=== PATIENT | female | born 1960 | race Caucasian/White ===

== ENCOUNTER 2022-03-10 15:48 | Emergency (ER) | payer MEDICAID, SELFPAY ==
[2022-03-10 16:00] VITALS: BP 113/77; PULSE 69; RESP 20; TEMP 36; O2SAT 96; BMI 31.3
[2022-03-10 16:15] LABS: Appearance Urine Cloudy (Clear); Bilirubin Urine Negative (Negative); Blood Urine 3+ (Negative); Color Urine Yellow (Yellow); Glucose Urine Negative (Negative); Ketones Urine Trace (Negative); Leukocyte Esterase Urine 1+ (Negative); Nitrite Urine Positive (Negative); Protein Urine 2+ (Negative); Specific Gravity Urine >= 1.030 (1.000-1.030); Urobilinogen Urine 0.2 (0.2-1.0)
[2022-03-10 16:28] LABS: RBC Urine 25-50 (0-2)
[2022-03-10 16:29] LABS: Bacteria Urine Moderate; Squamous Epithelial Cell Urine Few (None-Few)
--- NOTE | 2022-03-10 16:34 | ED.FEMALEGU ---
HPI - Female Genitourinary General Chief complaint: Urogenital Problems, Female Stated complaint: Possible bladder infection Time Seen by Provider: 03/10/22 15:57 History of Present Illness HPI Narrative: This 61-year-old female comes in with dysuria symptoms that began 4 days ago. She states that she has some abdominal pain that is mild. She has increased frequency and urgency. She has a sense of incomplete voiding. She attempted to get into urgent care but it was not open. She states that she did have a urinary tract infection a couple years ago but otherwise is in good health. Related Data Previous Rx's Medication Instructions Recorded cephalexin 500 mg capsule 500 mg PO TID 7 days #21 caps 03/10/22 Allergies Allergy/AdvReac Type Severity Reaction Status Date / Time Sulfa (Sulfonamide Allergy Verified 03/10/22 15:59 Antibiotics) Review of Systems Status of ROS: Reports: 10 or more systems reviewed and unremarkable except as noted in History and below Narrative: Constitutional: No fevers, no weight gain or loss. Eyes: No discharge. No vision changes. HENT: No congestion, no sore throat, no ear pain. Cardiovascular: No chest pain, no palpitations. Respiratory: No shortness of breath, no wheezes, no cough. Gastrointestinal: No abdominal pain, no vomiting, no diarrhea. Genitourinary: Dysuria symptoms as described above. Musculoskeletal: Normal range of motion. Skin: No rashes, no pruritis. Neurological: No dizziness, weakness, sensory change, speech change. Endo/Heme/Allergies: No bruising or bleeding. No polydipsia. Pysch: no suicidality, no anxiety, no insomnia. All other systems reviewed and are negative. [facility] Social History Smoking Status: Never smoker Do you use any of these nicotine containing products: None Second hand tobacco smoke exposure: No How often do you have a drink containing alcohol: monthly or less How many standard drinks containing alcohol do you have on a typical day: 1 or 2 How often do you have six or more drinks on one occasion: Never AUDIT-C Alcohol total score: 1 Non-prescribed substance use: denies use service: No Exam Narrative: Exam Narrative: Constitutional: Well-developed, well-nourished, no acute distress. HEENT: Normocephalic, atraumatic. Neck: Normal range of motion. Nontender. Supple. Heart: Intact distal pulses. Lungs: No chest discomfort. No wheezes, rhonchi, or rales. Abdomen: Mild tenderness in the lower abdomen. Back: Normal range of motion. Extremities: Normal range of motion. No injury. Skin: Intact. No rash. Warm. No erythema or pallor. Neurologic: No altered sensation. No weakness. Alert and oriented. Psychiatric: No suicidality. No anxiety or depression. No insomnia. Nursing notes and vitals signs are reviewed. Const: Vital Signs, click to edit/add: Vital Signs - 24 hr 03/10/22 16:00 Temperature 96.8 F L Pulse Rate [Pulse Oximeter] 69 Respiratory Rate 20 Blood Pressure [Ri ght Upper Arm] 113/77 Pulse Oximetry 96 Oxygen Delivery Me thod Room Air Course Vital Signs Vital signs: Initial Vital Signs Temperature 96.8 F L 03/10/22 16:00 Temperature Source Temporal Artery Scan 03/10/22 16:00 Pulse Rate 69 03/10/22 16:00 Pulse Rhythm 03/10/22 16:00 Respiratory Rate 20 03/10/22 16:00 Blood Pressure 113/77 03/10/22 16:00 Blood Pressure Mean 89 03/10/22 16:00 Blood Pressure Position Sitting 03/10/22 16:00 Pulse Oximetry 96 03/10/22 16:00 Oxygen Delivery Method 03/10/22 16:00 Vital Signs Temperature 96.8 F L 03/10/22 16:00 Pulse Rate 69 03/10/22 16:00 Respiratory Rate 20 03/10/22 16:00 Blood Pressure 113/77 03/10/22 16:00 Pulse Oximetry 96 03/10/22 16:00 Oxygen Delivery Method 03/10/22 16:00 Temperature 96.8 F L 03/10/22 16:00 Pulse Rate 69 03/10/22 16:00 Respiratory Rate 20 03/10/22 16:00 Blood Pressure 113/77 03/10/22 16:00 Pulse Oximetry 96 03/10/22 16:00 Oxygen Delivery Method 03/10/22 16:00 MDM - Female Genitourinary MDM Narrative Medical decision making narrative: This patient has dysuria symptoms suspicious of a urinary tract infection. Urinalysis today confirms this to be true. She did receive a prescription for Keflex. Lab Data Labs: Lab Results 12/23/22 Range/Units 16:05 Urine Color Yellow (Yellow) Urine Appearance Cloudy A (Clear) Urine pH 5.0 (5.0-8.5) Ur Specific [place] >= 1.030 (1.000-1.030) Urine Protein 2+ A (Negative) Urine Glucose (UA) Negative (Negative) Urine Ketones Trace A (Negative) Urine Blood 3+ A (Negative) Urine Nitrite Positive A (Negative) Urine Bilirubin Negative (Negative) Urine Urobilinogen 0.2 (0.2-1.0) Ur Leukocyte Esterase 1+ A (Negative) Urine RBC 25-50 A (0-2) Urine WBC 10-25 A (0-5) Ur Squamous Epith Cells Few (None-Few) Urine Bacteria Moderate A (None) Discharge Plan Discharge Clinical Impression: Urinary tract infection Patient Disposition: Home, Self-Care Condition: Stable Additional Instructions: Take medication as prescribed. Follow up with MD or return if worsening symptoms happen. Prescriptions: New cephalexin 500 mg capsule 500 mg PO TID 7 Days Qty: 21 0RF Follow Up/Referrals: Provider,Not a Local [Primary Care Provider] - Stand Alone Forms: [facility]th Info Instructions
== END 2022-03-10 16:58 | disposition home or self-care (01) ==
LOC: ED 16:37
PROVIDERS: Family Medicine; Emergency Provider Emergency Medicine Emergency Medical Services
DX: N39.0 Urinary tract infection, site not specified (principal)
CPT/HCPCS: 81001; 87086; 87186; 99283; 99284

== ENCOUNTER 2023-12-05 17:35 | Outpatient (CLI) | payer MEDICAID, SELFPAY | END 2023-12-05 17:36 | disposition home or self-care (01) | LOC: NFLDREF 12-06 10:49 | PROVIDERS: Visit Provider Nurse Practitioner | DX: N30.01 Acute cystitis with hematuria (principal); B96.20 Unspecified Escherichia coli [E. coli] as the cause of diseases classified elsewhere | CPT/HCPCS: 87086; 87186 ==

== ENCOUNTER 2023-12-05 21:56 | Emergency (ER) | payer MEDICAID, SELFPAY ==
[2023-12-05 22:05] VITALS: BP 122/81; PULSE 95; RESP 16; TEMP 36.3; O2SAT 95; BMI 31.3
--- NOTE | 2023-12-05 23:16 | ED.FEMALEGU ---
HPI - Female Genitourinary General Time Seen by Provider: 23:16 Date Seen: 12/05/23 Chief complaint: Urogenital Problems, Female Stated complaint: UTI Time Seen by Provider: 12/05/23 23:10 Source: patient, family, RN notes reviewed and old records reviewed Mode of arrival: ambulatory Limitations: no limitations History of Present Illness HPI Narrative: This is a very pleasant 63-year-old female with past history of UTI who comes to the emergency room requesting antibiotics. Patient was seen earlier today in urgent care, diagnosed with a UTI and a prescription for Macrobid was sent to the pharmacy which was closed. She and her both have symptoms. Her symptoms actually started 2 days ago when she began experiencing a mild burning with urination. These symptoms persisted and she was seen in the urgent care. Unfortunately they could not fill the prescription and when she began to few more achy and noticed more blood in her urine they elected to come to the emergency room. Both here and in the clinic patient and her adamantly deny a concern regarding UTI. They have not been swimming, did participated in recent travel or prolonged inability to urinate. Scarlet denies any fevers or chills. She does note a UTI 2 years ago which she states was not the normal E coli. 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 They were not sensitive to Macrobid. Scarlet has no vomiting fever chills. She is not currently on a blood thinner. Related Data Home Medications ?Medication ?Instructions ?Recorded ?Confirmed fluoxetine 10 mg capsule 10 mg PO DAILY 12/05/23 12/05/23 fluoxetine 20 mg capsule 20 mg PO DAILY 12/05/23 12/05/23 levothyroxine 88 mcg tablet 88 mcg PO DAILY 12/05/23 12/05/23 omeprazole 20 mg capsule,delayed 20 mg PO DAILY 12/05/23 12/05/23 release Previous Rx's ?Medication ?Instructions ?Recorded cephalexin 500 mg capsule 500 mg PO TID #15 caps 12/05/23 nitrofurantoin 100 mg PO BID 5 days #10 caps 12/05/23 monohydrate/macrocrystals 100 mg capsule Allergies Allergy/AdvReac Type Severity Reaction Status Date / Time Sulfa (Sulfonamide Allergy Verified 12/05/23 17:07 Antibiotics) Review of Systems Status of ROS: Reports: 6 or more systems reviewed and unremarkable except as noted in History and below [facility] Social History Smoking Status: Never smoker Do you use any of these nicotine containing products: None Second hand tobacco smoke exposure: No How often do you have a drink containing alcohol: monthly or less How many standard drinks containing alcohol do you have on a typical day: 1 or 2 How often do you have six or more drinks on one occasion: Never AUDIT-C Alcohol total score: 1 Non-prescribed substance use: denies use service: No Exam Narrative: Exam Narrative: Alert and oriented. No acute distress. External ears eyes nose clear. Heart with regular rate and rhythm and lungs are clear to auscultation. No CVA tenderness to percussion. No abdominal pain with palpation. Const: Vital Signs, click to edit/add: Vital Signs - 24 hr 12/05/23 22:05 Temperature 97.4 F L Pulse Rate [Left P ulse Oximeter] 95 Respiratory Rate 16 Blood Pressure [Ri ght Upper Arm] 122/81 Pulse Oximetry 95 Oxygen Delivery Me thod Room Air Documenting provider has reviewed patient's vital signs: yes Course Course ED Course: I do confirm with lab that urine culture is ordered. Macrobid had previously been prescribed but I do think it would be on villegas to use this medication as she has had Macrobid resistant infection in 2021. Instead will give her 1 dose of Keflex 500 mg p.o. and 1 dose of Pyridium for discomfort. She is in agreement with this plan. She is aware that it will stay in her underwear and cause her urine to be bright yellow. No fever chills vomiting at this time to suggest worsening infection. Vital Signs Vital signs: Initial Vital Signs Temperature 97.4 F L 12/05/23 22:05 Temperature Source Temporal Artery Scan 12/05/23 22:05 Pulse Rate 95 12/05/23 22:05 Pulse Rhythm Regular 12/05/23 22:05 Respiratory Rate 16 12/05/23 22:05 Blood Pressure 122/81 12/05/23 22:05 Blood Pressure Mean 94 12/05/23 22:05 Blood Pressure Position Sitting 12/05/23 22:05 Pulse Oximetry 95 12/05/23 22:05 Oxygen Delivery Method Room Air 12/05/23 22:05 Vital Signs Temperature 97.4 F L 12/05/23 22:05 Pulse Rate 95 12/05/23 22:05 Respiratory Rate 16 12/05/23 22:05 Blood Pressure 122/81 12/05/23 22:05 Pulse Oximetry 95 12/05/23 22:05 Oxygen Delivery Method Room Air 12/05/23 22:05 Temperature 97.4 F L 12/05/23 22:05 Pulse Rate 95 12/05/23 22:05 Respiratory Rate 16 12/05/23 22:05 Blood Pressure 122/81 12/05/23 22:05 Pulse Oximetry 95 12/05/23 22:05 Oxygen Delivery Method Room Air 12/05/23 22:05 MDM - Female Genitourinary MDM Narrative Medical decision making narrative: 1. UTI-review of the urinalysis from earlier today shows positive nitrites and leukocyte esterase as well as tendon fat 25 wbc's and rbc's. No concern for STI per this couple. Have switched patient's Macrobid to Keflex with 1st dose given tonight and subsequent doses sent to the pharmacy. Keflex 500 mg p.o. t.i.d. x5 days. Recommend pushing fluids. Seek medical attention for vomiting, fever, worsening symptoms. I do not have an explanation for both Scarlet and her getting UTIs is exactly the same time. 2. Disposition-home. Return for worsening symptoms and as needed. Did confirm that urine culture is pending. Medical Records Attestation: I reviewed the patient's medical records. Lab Data Attestation: I reviewed the patient's lab results. Lab results narrative: Urinalysis reviewed. Previous urine culture reviewed. Discharge Plan Discharge Clinical Impression: Urinary tract infection Patient Disposition: Home, Self-Care Condition: Unchanged Additional Instructions: Increase fluids. You will notice that the Pyridium given in the ED tonight for discomfort will change your urine to a very bright color and may stain your underwear. However, it should help with symptoms until the antibiotic has an opportunity to kick in and start working. I did switch her antibiotic from Macrobid to Keflex in light of the fact that you had a previous urine culture that showed resistance to Macrobid. I have confirmed that there is a urine culture pending on the sample you left in the clinic earlier today. Return to the emergency room her seek medical attention for fever, worsening symptoms and as needed. Prescriptions: New cephalexin 500 mg capsule 500 mg PO TID Qty: 15 0RF No Action fluoxetine 20 mg capsule 20 mg PO DAILY fluoxetine 10 mg capsule 10 mg PO DAILY levothyroxine 88 mcg tablet 88 mcg PO DAILY omeprazole 20 mg capsule,delayed release(DR/EC) 20 mg PO DAILY nitrofurantoin monohyd/m-cryst 100 mg capsule 100 mg PO BID 5 Days Qty: 10 0RF Rx Instructions: must administer with a meal/food Follow Up/Referrals: Provider,Not a Local [Non-Staff] - Stand Alone [facility]: [facility]
[2023-12-05] MEDS: PHENAZOPYRIDINE HCL 200 MG TABLET PO (23:31)
[2023-12-05] MEDS: cephALEXin 500 MG CAPSULE PO (23:31)
== END 2023-12-05 23:44 | disposition home or self-care (01) ==
LOC: ED 23:18
PROVIDERS: Emergency Provider Family Medicine; PCP Family Medicine
DX: N39.0 Urinary tract infection, site not specified (principal)
CPT/HCPCS: 87086; 99283; A9270

== ENCOUNTER 2024-06-11 14:54 | Outpatient (CLI) | payer MEDICAID, SELFPAY | END 2024-06-11 14:55 | disposition home or self-care (01) | PROVIDERS: PCP Family Medicine; Referring Provider Family Medicine; Visit Provider Nurse Practitioner Family | DX: N30.00 Acute cystitis without hematuria (principal); R35.0 Frequency of micturition | CPT/HCPCS: 87086 ==